=== PATIENT | female | born 1985 | race Caucasian/White ===

== ENCOUNTER 2019-07-03 16:26 | Observation (INO) | payer SELFPAY ==
[2019-07-03] VITALS (8 sets, daily range): BP systolic 118–157; BP diastolic 79–91; PULSE 74–96; RESP 16–22; TEMP 36.6–36.8; O2SAT 93–99; BMI 36.0
--- NOTE | 2019-07-03 16:31 | ED_ITS ---
Entered by Cassidy De Luna, acting as scribe for HPI - Extremity Injury (Upper) General: Chief Complaint: Extremity Injury, Upper Stated Complaint: fall from horse Time Seen by Provider: 07/03/19 16:31 Source: patient and family Mode of arrival: wheelchair Limitations: no limitations History of Present Illness: HPI narrative: 34 yo female presents with Left shoulder pain and injury. 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 pt states it hurts to breath and swelling to the L chest. 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) Other Extremity Injury: Left: shoulder Other injuries: chest Place: home Severity: severe Relieving factors: none Exacerbating factors: movement of extremity Context: fall (pt fell on horse landed on R side) Associated symptoms: Reports no associated symptoms Review of Systems Const: Denies: fever, chills, body aches or change in appetite Eyes: Denies: blurry vision or eye discomfort ENMT: Denies: throat pain or dental pain Card: Reports: chest pain Resp: Denies: shortness of breath GI: Denies: abdominal pain, nausea, vomiting or diarrhea : Denies: painful urination Musc: Reports: joint pain Skin/Breast: Denies: rash Neuro: Denies: headache Psych: Denies: depression [place]/Lymph: Denies: easy bruising All/Imm: Denies: hives PFSH ED PFSH: Statuses (acute, chronic, etc) shown below reflect problem list status as previously entered and may not be historically accurate Social History Smoking and tobacco status: light tobacco smoker Physical Exam Const: COMMON NORMALS: oriented x3 and healthy appearing HENMT: COMMON NORMALS: normocephalic and head/scalp atraumatic HEAD & SCALP: normocephalic and atraumatic Eye: COMMON NORMALS: PERRL and EOMs intact bilaterally PUPIL: Yes PERRL Neck/C-Spine: COMMON NORMALS: full ROM and supple Chest: COMMONS NORMALS: inspection of chest normal OTHER: Tenderness on left upper chest to palpation. Resp: COMMON NORMALS: normal respiratory effort, no retractions, no use of accessory muscles and clear to auscultation bilaterally AUSCULTATION: clear to auscultation bilaterally Cardio: COMMON NORMALS: regular rate, regular rhythm and no murmurs RATE: regular rate RHYTHM: regular rhythm GI: COMMON NORMALS: normal to inspection, nondistended, normoactive bowel sounds, soft to palpation, non-tender and no masses PALPATION: Yes soft Extremity: NARRATIVE EXTREMITY EXAM: Tenderness over left clavicle Neuro: COMMON NORMALS: oriented x3 Psych: COMMON NORMALS: mental status grossly normal, thought process normal and cooperative THOUGHT PROCESS: normal thought process Skin: COMMON NORMALS: no rashes or lesions noted and no wounds GENERAL SKIN EXAM: no rashes or lesions noted Course Vital Signs: Vital signs: Vital Signs Temperature 98.6 F 07/04/19 03:33 Pulse Rate 75 07/04/19 03:33 Respiratory Rate 18 07/04/19 05:43 Blood Pressure 110/71 07/04/19 03:33 Pulse Oximetry 94 07/04/19 03:33 MDM - Extremity Injury (Upper) MDM Narrative: Medical decision making narrative: pt presents here with a clavicle fx alone with a rib fx and pneumothorax. She has no major injuries otherwise. Pneumothorax is small and does not require a chest tube. I spoke to dr. victor and will admit for observation. Lab Data: Labs: Lab Results 07/03/19 07/03/19 07/03/19 Range/Units 16:40 16:40 16:40 WBC 16.3 H (4.0-10.0) 10^3/ uL RBC 4.53 (4.1-5.3) 10^6/u L Hgb 13.8 (11.5-15.3) g/dL Hct 41.9 (37.0-47.0) % MCV 92.5 (81-99) fL MCH 30.5 (28.0-34.0) pg MCHC 32.9 (30.0-36.0) g/dL RDW 12.1 (12.1-15.1) % Plt Count 366 (130-400) 10^3/c mm MPV 10.4 (7.4-10.4) fL Neut % (Auto) 81.2 % Lymph % (Auto) 10.7 % [place] % (Auto) 5.1 % Eos % (Auto) 1.9 % Baso % (Auto) 0.4 % Neut # (Auto) 13.3 H (1.8-7.7) 10^3/u L Lymph # (Auto) 1.8 (0.8-4.8) 10^3/u L [place] # (Auto) 0.8 (0.2-0.9) 10^3/u L Eos # (Auto) 0.3 (0.0-0.8) 10^3/u L Baso # (Auto) 0.1 (0.0-0.1) 10^3/u L Nucleated RBC % (a uto) 0 % Nucleated RBCs # 0.0 /100WBC PT 14.20 H (10.5-13.3) SECO NDS INR 1.06 (0.8-1.2) Sodium 139 (136-145) mmol/L Potassium 3.6 (3.5-5.1) mmol/L Chloride 102 (98-107) mmol/L Carbon Dioxide 25 (22-29) mmol/L Anion Gap 15.6 (5-19) BUN 12 (6-20) mg/dL Creatinine 1.0 H (0.5-0.9) mg/dL GFR Calculation 63.5 L (90-130) mL/min Glucose 122 H (74-109) mg/dL Calcium 9.7 (8.5-10.5) mg/dL Total Bilirubin 0.3 (0.15-1.2) mg/dL AST 29 (0-32) U/L ALT 16 (0-33) U/L Alkaline Phosphata se 64 (35-105) IU/L Total Protein 8.0 (6.6-8.7) g/dL Albumin 4.9 (3.5-5.2) g/dL Globulin 3.1 (1.3-4.6) g/dL Imaging Data^: CT Chest: Radiologist's impression: Patient: devonte sullivan Unit #: [id number] : 1985 Age/Sex: 34 / F ADM Date: 07/03/19 Loc: ER Room/Bed: Attending Dr: Ordering Provider/Ordering MD: Jake Sandy MD Date of Service: 02/01/20 Procedure(s): CT chest w con* [id number] Accession Number(s): [id number] Report Number: [id number] PROCEDURE INFORMATION: Exam: CT Chest With Contrast Exam date and time: 07/03/2019 4:48 PM Age: 34 years old Clinical indication: Injury or trauma; Fall; Initial encounter; Blunt trauma (contusions or hematomas) and swelling (edema); Injury date: Today; Injury details: Trauma - thrown from horse - landed on L shoulder on asphalt TECHNIQUE: Imaging protocol: Computed tomography of the chest with intravenous contrast. Total DLP: 915.95 mGy-cm Radiation optimization: All CT scans at this facility use at least one of these dose optimization techniques: automated exposure control; mA and/or kV adjustment per patient size (includes targeted exams where dose is matched to clinical indication); or iterative reconstruction. Contrast material: OMNI 300; Contrast volume: 95 ml; Contrast route: IV; COMPARISON: CR (CHEST, ) 07/03/2019 4:37 PM FINDINGS: Lungs: Focal airspace opacities noted in the left lung compatible with a probable contusion. Within this area of airspace opacity, there is a fluid collection and air bubbles compatible with a probable traumatic pneumatocele is measuring 1.8 x 4.0 cm in size image 29. Pleural space: There is a small left pneumothorax. No right pneumothorax. There is a small left pleural effusion. Heart: Unremarkable. No cardiomegaly. No pericardial effusion. Aorta: The thoracic aorta is intact. Lymph nodes: Unremarkable. No enlarged lymph nodes. Liver: The visualized liver and spleen are intact. Gallbladder and bile ducts: There is a tiny gallstone. Pancreas: Pancreas is unremarkable. Adrenals: The adrenal glands are unremarkable. Kidneys and ureters: The upper poles of the kidneys are intact. Intraperitoneal space: No free intraperitoneal air. Bones/joints: There are nondisplaced fractures of the anterior lateral left 1st through 5th ribs. No acute right rib fracture. Soft tissues: There is abundant subcutaneous emphysema along the left chest wall. CT/CT chest w con* [id number] IMPRESSION: 1. There is a small left pneumothorax. There is subcutaneous emphysema along the left chest wall. 2. Probable pulmonary contusion with traumatic pneumatocele is to left lung as above. 3. There are nondisplaced fractures of the anterior lateral left 1st through 5th ribs. Discharge Plan Discharge Patient Disposition: Admitted As Inpatient Admit Provider: Gen Victor Clinical Impression: Fracture of clavicle Qualifiers: Encounter type: initial encounter Clavicle location: shaft Fracture type: closed Fracture alignment: nondisplaced Laterality: left Qualified Code(s): S42.025A - Nondisplaced fracture of shaft of left clavicle, initial encounter for closed fracture Fracture of rib of left side Qualifiers: Encounter type: initial encounter Rib fracture type: multiple ribs Fracture type: closed Qualified Code(s): S22.42XA - Multiple fractures of ribs, left side, initial encounter for closed fracture Pneumothorax Qualifiers: Pneumothorax type: traumatic Encounter type: initial encounter Qualified Code(s): S27.0XXA - Traumatic pneumothorax, initial encounter Condition: Stable Discharge Date/Time: 07/03/19 18:48 Coding Level of Care Code ED Fine Patcher for scooter Olvera The documentation recorded by the Calixto landry Bridget Annette, accurately reflects the service I personally performed and the decisions made by Vika pabon Korby, MD
--- NOTE | 2019-07-03 16:33 | XRR_ITS ---
PROCEDURE INFORMATION: Exam: XR Chest, 1 View Exam date and time: 07/03/2019 4:35 PM Age: 34 years old Clinical indication: Injury or trauma; Fall; Initial encounter; Blunt trauma (contusions or hematomas); Injury date: Today; Injury details: Trauma - thrown from horse - landed on L shoulder on asphalt TECHNIQUE: Imaging protocol: XR of the chest Views: 1 view. COMPARISON: No relevant prior studies available. FINDINGS: Lungs: Unremarkable. No consolidation. Pleural space: There is a tiny apical pneumothorax. Heart/Mediastinum: Unremarkable. No cardiomegaly. Bones/joints: There is a nondisplaced fracture left clavicle. There are multiple left rib fractures that are not well visualized on this exam but better visualized on the chest CT of the same day. Soft tissues: There is subcutaneous emphysema along the left chest wall. XR/XR chest 1V portable [id number] IMPRESSION: 1. There are multiple left rib fractures that are not well visualized on this exam but better visualized on the chest CT of the same day. 2. There is a tiny left pneumothorax much better visualized on the chest CT the same day.
--- NOTE | 2019-07-03 16:33 | XRR_ITS ---
PROCEDURE INFORMATION: Exam: XR Left Shoulder Exam date and time: 07/03/2019 4:35 PM Age: 34 years old Clinical indication: Injury or trauma; Fall; Initial encounter; Blunt trauma (contusions or hematomas; Left; Injury date: Today; Injury details: Trauma - thrown from horse - landed on L shoulder on asphalt TECHNIQUE: Imaging protocol: XR Left shoulder. Views: 2 or more views. COMPARISON: No relevant prior studies available. FINDINGS: Bones/joints: There is a nondisplaced fracture of the midshaft left clavicle. Nondisplaced fractures of the left 1st through 5th ribs are identified but better visualized on the chest CT the same day. Proximal humerus and glenohumeral joint alignment is intact. Lungs: Probable early contusion left lung is noted. Pleural space: There is a small left apical pneumothorax. Soft tissues: Normal. XR/XR shoulder LT min 2V* [id number] IMPRESSION: 1. There is a nondisplaced fracture of the midshaft left clavicle. 2. Nondisplaced fractures of the left 1st through 5th ribs are identified but better visualized on the chest CT the same day. 3. There is a small left apical pneumothorax.
[2019-07-03] MEDS: HYDROmorphone 1 mg/mL INJ 1 mL IVP ×2 (16:43→17:23)
--- NOTE | 2019-07-03 16:47 | CTR_ITS ---
PROCEDURE INFORMATION: Exam: CT Chest With Contrast Exam date and time: 07/03/2019 4:48 PM Age: 34 years old Clinical indication: Injury or trauma; Fall; Initial encounter; Blunt trauma (contusions or hematomas) and swelling (edema); Injury date: Today; Injury details: Trauma - thrown from horse - landed on L shoulder on asphalt TECHNIQUE: Imaging protocol: Computed tomography of the chest with intravenous contrast. Total DLP: 915.95 mGy-cm Radiation optimization: All CT scans at this facility use at least one of these dose optimization techniques: automated exposure control; mA and/or kV adjustment per patient size (includes targeted exams where dose is matched to clinical indication); or iterative reconstruction. Contrast material: OMNI 300; Contrast volume: 95 ml; Contrast route: IV; COMPARISON: CR (CHEST, ) 07/03/2019 4:37 PM FINDINGS: Lungs: Focal airspace opacities noted in the left lung compatible with a probable contusion. Within this area of airspace opacity, there is a fluid collection and air bubbles compatible with a probable traumatic pneumatocele is measuring 1.8 x 4.0 cm in size image 29. Pleural space: There is a small left pneumothorax. No right pneumothorax. There is a small left pleural effusion. Heart: Unremarkable. No cardiomegaly. No pericardial effusion. Aorta: The thoracic aorta is intact. Lymph nodes: Unremarkable. No enlarged lymph nodes. Liver: The visualized liver and spleen are intact. Gallbladder and bile ducts: There is a tiny gallstone. Pancreas: Pancreas is unremarkable. Adrenals: The adrenal glands are unremarkable. Kidneys and ureters: The upper poles of the kidneys are intact. Intraperitoneal space: No free intraperitoneal air. Bones/joints: There are nondisplaced fractures of the anterior lateral left 1st through 5th ribs. No acute right rib fracture. Soft tissues: There is abundant subcutaneous emphysema along the left chest wall. CT/CT chest w con* [id number] IMPRESSION: 1. There is a small left pneumothorax. There is subcutaneous emphysema along the left chest wall. 2. Probable pulmonary contusion with traumatic pneumatocele is to left lung as above. 3. There are nondisplaced fractures of the anterior lateral left 1st through 5th ribs. Radiation Dose CTDIVOL = (mGy): DLP = 915.95 (mGy-cm)
[2019-07-03 16:52] LABS: Basophils # 0.1 10^3/uL (0.0-0.1); Basophils % 0.4 %; Eosinophils # 0.3 10^3/uL (0.0-0.8); Eosinophils % 1.9 %; Hematocrit 41.9 % (37.0-47.0); Hemoglobin 13.8 g/dL (11.5-15.3); Lymphocytes # 1.8 10^3/uL (0.8-4.8); Lymphocytes % 10.7 %; Mean Corpuscular HGB Conc 32.9 g/dL (30.0-36.0); Mean Corpuscular Hemoglobin 30.5 pg (28.0-34.0); Mean Corpuscular Volume 92.5 fL (81-99); Mean Platelet Volume 10.4 fL (7.4-10.4); Monocytes # 0.8 10^3/uL (0.2-0.9); Monocytes % 5.1 %; Neutrophils # 13.3 10^3/uL (1.8-7.7); Neutrophils % 81.2 %; Nucleated Red Blood Cells % 0 %; Platelet Count 366 10^3/cmm (130-400); Red Blood Count 4.53 10^6/uL (4.1-5.3); Red Cell Distribution Width 12.1 % (12.1-15.1); White Blood Count 16.3 10^3/uL (4.0-10.0)
[2019-07-03 17:11] LABS: Alanine Aminotransferase 16 U/L (0-33); Albumin Level 4.9 g/dL (3.5-5.2); Alkaline Phosphatase 64 IU/L (35-105); Anion Gap 15.6 (5-19); Aspartate Amino Transferase 29 U/L (0-32); Blood Urea Nitrogen 12 mg/dL (6-20); Calcium 9.7 mg/dL (8.5-10.5); Carbon Dioxide 25 mmol/L (22-29); Chloride 102 mmol/L (98-107); Globulin 3.1 g/dL (1.3-4.6); Glomerular Filtration Rate 63.5 mL/min (90-130); Glucose 122 mg/dL (74-109); Potassium 3.6 mmol/L (3.5-5.1); Sodium 139 mmol/L (136-145); Total Bilirubin 0.3 mg/dL (0.15-1.2)
[2019-07-03] MEDS: iohexol 300 mg/mL 100 mL Btl IV ×2 (17:18→18:13)
--- NOTE | 2019-07-03 17:20 | CTR_ITS ---
PROCEDURE INFORMATION: Exam: CT Cervical Spine Without Contrast Exam date and time: 07/03/2019 5:40 PM Age: 34 years old Clinical indication: Injury or trauma; Fall; Initial encounter; Sprain or strain, cervical ligaments TECHNIQUE: Imaging protocol: Computed tomography images of the cervical spine without contrast. Total DLP: 755.59 mGy-cm Radiation optimization: All CT scans at this facility use at least one of these dose optimization techniques: automated exposure control; mA and/or kV adjustment per patient size (includes targeted exams where dose is matched to clinical indication); or iterative reconstruction. COMPARISON: No relevant prior studies available. FINDINGS: Vertebrae: No acute fracture. Normal alignment. Discs/Spinal canal/Neural foramina: No disc herniations. No spinal canal stenosis. No neural foraminal narrowing. Soft tissues: Unremarkable. Lungs: Lung apices are normal. CT/CT cervical spin wo con* [id number] IMPRESSION: No acute findings. Radiation Dose CTDIVOL = (mGy): DLP = 755.59 (mGy-cm)
--- NOTE | 2019-07-03 17:20 | CTR_ITS ---
PROCEDURE INFORMATION: Exam: CT Head Without Contrast Exam date and time: 07/03/2019 5:40 PM Age: 34 years old Clinical indication: Injury or trauma; Fall; Initial encounter; Blunt trauma (contusions or hematomas) TECHNIQUE: Imaging protocol: Computed tomography of the head without contrast. Total DLP: 859.83 mGy-cm Radiation optimization: All CT scans at this facility use at least one of these dose optimization techniques: automated exposure control; mA and/or kV adjustment per patient size (includes targeted exams where dose is matched to clinical indication); or iterative reconstruction. COMPARISON: No relevant prior studies available. FINDINGS: Brain: This head CT was obtained after the CT scan of the chest earlier this evening and there is still contrast within the brain parenchyma. No enhancing abnormality. No extra-axial fluid collection. No edema or mass effect. Ventricles: Normal. No ventriculomegaly. Bones/joints: Unremarkable. No acute fracture. Sinuses: There is mild mucosal thickening in the sinuses. Mastoid air cells: Visualized mastoid air cells are well aerated. Soft tissues: Unremarkable. CT/CT head wo con* [id number] IMPRESSION: No acute intracranial abnormality. Radiation Dose CTDIVOL = (mGy): DLP = 859.83 (mGy-cm)
--- NOTE | 2019-07-03 17:20 | CTR_ITS ---
PROCEDURE INFORMATION: Exam: CT Abdomen And Pelvis With Contrast Exam date and time: 07/03/2019 5:51 PM Age: 34 years old Clinical indication: Injury or trauma; Fall; Initial encounter; Blunt; Upper TECHNIQUE: Imaging protocol: Computed tomography of the abdomen and pelvis with intravenous contrast. Total DLP: 1836.99 mGy-cm Radiation optimization: All CT scans at this facility use at least one of these dose optimization techniques: automated exposure control; mA and/or kV adjustment per patient size (includes targeted exams where dose is matched to clinical indication); or iterative reconstruction. Contrast material: OMNIPAQUE 300; Contrast volume: 95 ml; Contrast route: IV; COMPARISON: No relevant prior studies available. FINDINGS: Lungs: The small left basilar pneumothorax, probable left pulmonary contusion and probable traumatic pneumatocyst is again identified as seen on the chest CT earlier today. The left rib fractures are better visualized on the prior exam. There is mild right basilar volume loss. Liver: Unremarkable.No mass. Gallbladder and bile ducts: Normal. No calcified stones. No ductal dilation. Pancreas: Normal. No ductal dilation. Spleen: Normal. No splenomegaly. Adrenals: Normal. No mass. Kidneys and ureters: Normal. No hydronephrosis. Stomach and bowel: Unremarkable. No obstruction. No mucosal thickening. Appendix: A normal appendix is identified. Intraperitoneal space: Unremarkable. No free air. No significant fluid collection. Vasculature: Unremarkable.No abdominal aortic aneurysm. Lymph nodes: Unremarkable.No enlarged lymph nodes. Bladder: Unremarkable as visualized. Reproductive: There is a tampon in the vagina. Uterus and ovaries are unremarkable. Bones/joints: There is a transitional left lumbosacral junction. No acute fracture. Soft tissues: There is subcutaneous emphysema along the left chest wall. There is a contusion of the left lower abdominal/upper left pelvic wall. No hematoma. CT/CT abdomen pelvis w con* [id number] IMPRESSION: 1. There is a contusion of the left lower abdominal/upper left pelvic wall. No hematoma. 2. Solid organs are intact. 3. Small left basilar pneumothorax, left pulmonary contusion and subcutaneous emphysema with left pulmonary new traumatic cyst are again identified. There are left rib fractures better visualized on the chest CT of the same day. Otherwise no additional acute fracture. Radiation Dose CTDIVOL = (mGy): DLP = 1836.99 (mGy-cm)
[2019-07-03 17:38] LABS: INR 1.06 (0.8-1.2)
[2019-07-03] MEDS: HYDROcodone-acetaminophen 5-325 mg Tablet 1 TAB PO (19:49)
[2019-07-03] MEDS: sodium chloride 0.9% 1,000 ML 100 ML IV (19:50)
[2019-07-03] MEDS: morphine 4 mg/mL SDV 1 mL IVP ×2 (20:54→22:48)
[2019-07-03] MEDS: ondansetron 2 mg/ML SDV 2 mL 4 MG IVP (22:44)
[2019-07-04] VITALS (8 sets, daily range): BP systolic 103–110; BP diastolic 65–72; PULSE 75–87; RESP 16–20; TEMP 36.8–37; O2SAT 94–96
[2019-07-04] MEDS: HYDROcodone-acetaminophen 5-325 mg Tablet 1 TAB PO (03:28)
[2019-07-04] MEDS: sodium chloride 0.9% 1,000 ML 100 ML IV (03:54)
--- NOTE | 2019-07-04 05:00 | XRR_ITS ---
PROCEDURE INFORMATION: Exam: XR Chest, 1 View Exam date and time: 07/04/2019 6:25 AM Age: 34 years old Clinical indication: Chest pain; Type not specified; Additional info: Cp TECHNIQUE: Imaging protocol: XR of the chest Views: 1 view. COMPARISON: CR (CHEST, ) 07/03/2019 4:37 PM FINDINGS: Lungs: Asymmetric left basilar airspace disease. Pleural space: Nonvisualization of CT detected pneumothorax. Heart/Mediastinum: Cardiac silhouette upper limits of normal in size. Bones/joints: Poorly visualized CT detected left rib fractures. XR/XR chest 1V portable [id number] IMPRESSION: Asymmetric left basilar airspace disease.
[2019-07-04] MEDS: morphine 4 mg/mL SDV 1 mL IVP ×2 (05:43→08:35)
[2019-07-04 06:17] LABS: Basophils # 0.1 10^3/uL (0.0-0.1); Basophils % 0.5 %; Eosinophils # 0.1 10^3/uL (0.0-0.8); Lymphocytes % 18.3 %; Mean Corpuscular HGB Conc 32.4 g/dL (30.0-36.0); Mean Corpuscular Hemoglobin 29.6 pg (28.0-34.0); Mean Corpuscular Volume 91.1 fL (81-99); Mean Platelet Volume 10.4 fL (7.4-10.4); Monocytes # 0.8 10^3/uL (0.2-0.9); Monocytes % 7.1 %; Neutrophils # 7.8 10^3/uL (1.8-7.7); Neutrophils % 72.7 %; Nucleated Red Blood Cells % 0 %; Platelet Count 314 10^3/cmm (130-400); Red Blood Count 4.06 10^6/uL (4.1-5.3); Red Cell Distribution Width 12.4 % (12.1-15.1); White Blood Count 10.7 10^3/uL (4.0-10.0)
[2019-07-04 06:45] LABS: Anion Gap 15.8 (5-19); Blood Urea Nitrogen 8 mg/dL (6-20); Calcium 9.1 mg/dL (8.5-10.5); Carbon Dioxide 22 mmol/L (22-29); Chloride 100 mmol/L (98-107); Glomerular Filtration Rate 95.8 mL/min (90-130); Glucose 120 mg/dL (74-109); Osmolality Calculated 275 mOsm/kg (285-295); Potassium 3.8 mmol/L (3.5-5.1); Sodium 134 mmol/L (136-145)
[2019-07-04] MEDS: sennosides-docusate Tablet 1 TAB PO (08:34)
[2019-07-04] MEDS: oxyCODONE-APAP 5-325 mg Tablet PO (10:27)
--- NOTE | 2019-07-04 11:29 | PM.SDS ---
Short Stay Summary Providers Date of Admit/Discharge: 07/04/19 Attending Provider: Gen Victor MD Chief Complaint: fall from horse HPI History of Present Illness devonte sullivan is a 34 year old female who presented to the ER yesterday after she fell from the horse landing on her left side. Patient mainly had left-sided abdominal pain and chest pain. She denies any loss of vision, amnesia or double vision. Imaging studies in the ER showed left clavicle fracture, left 1 through 5 rib fractures and a small pneumothorax. Patient was therefore admitted overnight for observation and pain control. Review of Systems General: Reports: 10 or more systems reviewed and unremarkable except in HPI and below Home Meds/Allergies Home Medications and Allergies Home Medications Medication Instructions Recorded Confirmed Type fluoxetine [Prozac] 20 mg PO BEDTIME 07/03/19 07/04/19 History Allergies Allergy/AdvReac Type Severity Reaction Status Date / Time ibuprofen Allergy ALGY-Anaphy Verified 07/03/19 16:35 laxis PFSH Acute PFSH: Statuses (acute, chronic, etc) shown below reflect problem list status as previously entered and may not be historically accurate Medical History Closed left clavicular fracture (Acute) Depression (Acute) Multiple fractures of ribs of left side (Acute) Traumatic pneumothorax (Acute) Social History Smoking and tobacco status: light tobacco smoker Female Reproductive History: Date of last menstrual period: 07/03/19 Vitals/I&O/Wt Last Vital Signs Temp 98.5 F 07/04/19 11:14 Pulse 83 07/04/19 11:14 Resp 20 H 07/04/19 11:14 BP 108/72 07/04/19 11:14 Pulse Ox 95 07/04/19 11:14 07/03/19 07/04/19 07/04/19 22:59 06:59 14:59 Intake Total 806.667 / 806.667 240 / 240 Output Total 300 / 1100 800 / 1100 Balance -300 / -293.333 6.667 / -293.333 240 / 240 Weight last 48 hrs Weight 210 lb Physical Exam Narrative: EXAM NARRATIVE: HEENT: Normocephalic, good range of movements Eye: Sclera /conjunctiva normal Respiratory and chest: Bilateral clear breath sounds on auscultation Cardiovascular: Normal S1 and S2 heart sounds, left tender left chest wall and left clavicle. Left arm in a sling Abdomen: Soft to palpation, tender left flank Neurological: Oriented to place person and time Skin: Intact, no lesions appreciated on gross exam Hospital Course Admission Diagnoses: Left rib fractures Left clavicle fracture Left pneumothorax Discharge Summary: Patient was admitted to the hospital overnight for pain control. By following day her repeat chest x-ray showed no significant pneumothorax. Her vital signs are stable and her pain was reasonably well-controlled. SSS Data Data Completed and Pending: Completed Studies During Hospitalization Category Date Time Status CT abdomen pelvis w con* [id number] Urge nt Cat Scan 07/03/19 17:[address] cervical spin wo con* [id number] Urge nt Cat Scan 07/03/19 17:[address] chest w con* [id number] Urgent Cat Scan 07/03/19 16:[address] head wo con* [id number] Urgent Cat Scan 07/03/19 17:20 Completed XR chest 1V alecia ble [id number] Routine Exams 07/04/19 05:00 Completed XR chest 1V alecia ble [id number] Urgent Exams 07/03/19 16:33 Completed XR shoulder LT mi n 2V* [id number] Stat Exams 07/03/19 16:33 Completed Diagnoses at Discharge Discharge Diagnosis (1) Closed left clavicular fracture: Status: Acute Problem details: Placed in sling, establish care with PCP for further follow-up Will need physical therapy in the future (2) Multiple fractures of ribs of left side: Status: Acute Problem details: Advised incentive spirometry and pain control (3) Traumatic pneumothorax: Status: Acute Problem details: Resolved on x-ray this morning Discharge Plan Discharge Patient Disposition: Home, Self-Care Condition: Stable Prescriptions: New oxycodone-acetaminophen 5-325 mg Tablet 1 - 2 tab PO Q6H PRN (Reason: Moderate To Severe Pain) Qty: 28 RF: 0 sennosides-docusate sodium 8.6-50 mg Tablet 1 tab PO BID Qty: 60 RF: 0 Continued fluoxetine [Prozac] 20 mg Capsule 20 mg PO BEDTIME RF: 0 Discharge Orders: Discharge Order (Routine); Ordered 07/04/19 Ordered By: Gen Victor Discharge Diet: Advance as tolerated Discharge Activity: Increase activity as tolerated Activity Restrictions/Additional Instructions: Advised to wear the sling for left clavicle fracture Incentive spirometry ordered atelectasis/pneumonia Stool softeners to avoid constipation, if there is no bowel movement in 3 days advised to take [id number]-[id number] laxative [facility] [place] [facility] Statement*: Pneumothorax requiring overnight stay for observation Time Spent in Patient Care*: less than 30 min Quality Metrics Clinical Quality Measures: During this hospital stay, did patient experience: None Coding Level of Care Code 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
== END 2019-07-04 13:01 | disposition home or self-care (01) ==
LOC: ER 17:49 → MEDSURG 18:13
PROVIDERS: Admitting Provider Surgery; Emergency Provider Emergency Medicine; Visit Provider Surgery
DX: S42.002A Fracture of unspecified part of left clavicle, initial encounter for closed fracture (principal); S22.42XA Multiple fractures of ribs, left side, initial encounter for closed fracture; S27.0XXA Traumatic pneumothorax, initial encounter; V80.010A Animal-rider injured by fall from or being thrown from horse in noncollision accident, initial encounter; F32.9 Major depressive disorder, single episode, unspecified; F17.210 Nicotine dependence, cigarettes, uncomplicated
CPT/HCPCS: 12345; 70450; 71045; 71260; 72125; 73030; 74177; 80048; 80053; 85025; 85610; 96360; 96361; 96374; 96375; 96376; 97161; 99282; 99285; G0378; J1170; J2270; J2405; J7030; Q9967